=== PATIENT | male | born 1965 | race Caucasian/White ===

== ENCOUNTER 2021-11-18 07:34 | Day surgery (SDC) | payer MEDICARE ==
[~2021-11-18] VITALS: Ht 188 cm; Wt 114.9 kg
[~2021-11-18 07:34] MED LIST: Aspir 8181 MG PO; Crestor20 MG PO; LAMO100 PO; RISP2 PO; SERT50 PO; TRAZ50 PO
--- NOTE | 2021-11-18 09:00 | NUR ---
Ambulatory in Day Surgery History, Chart, Medications and Allergies reviewed before start of procedure. Lungs clear T/O to Auscultation. Patient confirms NPO status and agrees with scheduled surgery. Pre-Op teaching done. Pt verbalizes understanding. Patient States Post-Procedure ride home has been arranged.
[2021-11-18 09:16] LABS: Influenza A, PCR NEGATIVE (NEGATIVE); Influenza B, PCR NEGATIVE (NEGATIVE); Resp Syncytial Virus, PCR NEGATIVE (NEGATIVE); SARS-Cov-2 (COVID-19) PCR, MMC NEGATIVE (NEGATIVE)
--- NOTE | 2021-11-18 10:13 | NUR ---
11/18/21 1013 Wayne Phan History, Chart, Medications and Allergies reviewed before start of procedure. Patient confirms NPO status and agrees with scheduled surgery. 3-LEAD EKG REVIEWED WITH PHYSICIAN PRIOR TO START OF PROCEDURE. MONITOR INTACT WITH CONTINUOUS PULSE OXIMETRY AND INTERMITTENT BP. PATIENT DETERMINED TO BE ASA APPROPRIATE FOR PROPOFOL SEDATION PRIOR TO START OF PROCEDURE BY DR. RICE.
--- NOTE | 2021-11-18 10:43 | NUR ---
Patient up to Ambulate independently. Gait steady. Discharge instructions reviewed with patient. Patient verbalizes understanding. Copy given to patient to take home. Discharged via wheelchair to private car for ride home WITH SIGNIFICANT OTHER
== END 2021-11-18 10:44 | disposition home or self-care (01) ==
LOC: ORSCMMR 07:34 → ORD 08:30 → ORSCMMR 10:44
PROVIDERS: Internal Medicine Gastroenterology
PROC: 0DBP8ZX Excision of Rectum, Via Natural or Artificial Opening Endoscopic, Diagnostic (ICD-10-PCS; principal; 2021-11-18 08:30)
PROC: 0DBK8ZX Excision of Ascending Colon, Via Natural or Artificial Opening Endoscopic, Diagnostic (ICD-10-PCS; principal; 2021-11-18 08:30)
DX: Z12.11 Encounter for screening for malignant neoplasm of colon (principal); Z80.0 Family history of malignant neoplasm of digestive organs; D12.2 Benign neoplasm of ascending colon; K62.1 Rectal polyp; F32.A Depression, unspecified; I25.10 Atherosclerotic heart disease of native coronary artery without angina pectoris; F17.210 Nicotine dependence, cigarettes, uncomplicated; Z79.82 Long term (current) use of aspirin; Z79.899 Other long term (current) drug therapy
CPT/HCPCS: 0241U; 88305; J2704; J7120

== ENCOUNTER → 2023-04-13 | Outpatient (CLI) | payer MEDICARE | END | disposition home or self-care (01) | LOC: PLD 14:27 → LAB SHORT 14:27 | DX: D49.0 Neoplasm of unspecified behavior of digestive system (principal) | CPT/HCPCS: 88173 ==

== ENCOUNTER 2023-05-24 07:10 | Day surgery (SDC) | payer MEDICARE ==
[~2023-05-24] VITALS: Ht 188 cm; Wt 120.0 kg
--- NOTE | 2023-05-24 09:44 | NUR ---
05/24/23 0944 Hoa Waller 10 ML OF NORMAL SALINE MIXED & VERIFIED W/ 0.1 ML EPI (1MG/ML) PER ORDER FOR INJECTION AT OPSITE BY DR JEAN. 5 ML INJECTED.
--- NOTE | 2023-05-24 12:12 | NUR ---
05/24/23 1212 ABEBA PARSON SUTURES TO BELOW AND AROUND LEFT EAR. NO DRESSING IN PLACE
[2023-05-24 12:34] VITALS: BP 134/89
--- NOTE | 2023-05-24 12:41 | NUR ---
05/24/[address] IN TO SEE PT.
== END 2023-05-24 13:45 | disposition home or self-care (01) ==
LOC: ORSCSDS 07:10
PROVIDERS: Otolaryngology
PROC: 0CB90ZZ Excision of Left Parotid Gland, Open Approach (ICD-10-PCS; principal; 2023-05-24 08:45)
DX: D11.0 Benign neoplasm of parotid gland (principal); J44.9 Chronic obstructive pulmonary disease, unspecified; F17.210 Nicotine dependence, cigarettes, uncomplicated; E11.9 Type 2 diabetes mellitus without complications; I25.10 Atherosclerotic heart disease of native coronary artery without angina pectoris; F31.89 Other bipolar disorder; E66.9 Obesity, unspecified; Z68.34 Body mass index [BMI] 34.0-34.9, adult; Z79.899 Other long term (current) drug therapy; Z79.82 Long term (current) use of aspirin
CPT/HCPCS: 82947; 88307; A9270; J0171; J1100; J2250; J2405; J2704; J3010; J7120

== ENCOUNTER → 2023-09-03 | Outpatient (CLI) | payer MEDICARE | END | disposition home or self-care (01) | LOC: LAB SHORT 08:02 → LAB 08:02 | DX: L03.011 Cellulitis of right finger (principal) | CPT/HCPCS: 87070; 87077; 87186; 87205 ==

== ENCOUNTER 2023-11-01 06:08 | Day surgery (SDC) | payer MEDICARE ==
[~2023-11-01] VITALS: Ht 188 cm; Wt 121.2 kg
[2023-11-01] VITALS (8 sets, daily range): BP systolic 117–131; BP diastolic 76–88
[~2023-11-01 06:08] MED LIST changes: +ALBU90OI INH; +ANORO ELLIPTA1 EACH INH; +BENADRYL25 MG PO
--- NOTE | 2023-11-01 07:05 | NUR ---
Ambulatory in Day Surgery. History, Chart, Medications and Allergies reviewed before start of procedure.Lungs clear T/O to Auscultation. Patient confirms NPO status and agrees with scheduled surgery. Pre-Op teaching done. Pt verbalizes understanding. Patient States Post-Procedure ride home has been arranged.
--- NOTE | 2023-11-01 07:37 | NUR ---
PT HAVING BREATHING TREATMENT.
--- NOTE | 2023-11-01 07:40 | NUR ---
DR SPENCER HERE TO TALK WITH PT, REPORTS HAVING TO DELAY HIS PROCEDURE AT THIS TIME FOR AN EMERGENT CASE/PROCEDURE. PT CALLING HIS FAMILY/RIDE.
--- NOTE | 2023-11-01 08:57 | NUR ---
PT BEEN RESTING QUIETLY. DENIES NEED.
--- NOTE | 2023-11-01 09:55 | NUR ---
PT REMAINED NPO. PT UP TO USE RESTROOM, PT ABLE TO VOID. PT LS CLEAR.
--- NOTE | 2023-11-01 11:46 | NUR ---
REPORT RECEIVED FROM BENJAMIN MARIN RN. VSS. PT ABLE TO REPOSITION SELF IN BED. PT REQUESTING PO FOOD AND FLUIDS AND TOLERATING THEM WELL. PT REPORTS 3/10 ACHING PAIN TO ABDOMEN. PT DENIES NAUSEA OR OTHER CONCERNS. PT HAS ONE DRESSING WITH GAUZE AND OCCLUSIVE DRESSING TO ABDOMEN THAT IS C/D/I WITHOUT DRAINAGE, REDNESS OR SWELLING.
--- NOTE | 2023-11-01 12:28 | NUR ---
Patient up to Ambulate independently. Gait steady. Discharge instructions reviewed with patient. Patient verbalizes understanding. Copy given to patient to take home. Discharged via wheelchair to private car for ride home WITH S/O.
== END 2023-11-01 22:54 | disposition home or self-care (01) ==
LOC: ORSCMMR 06:08 → ORD 07:30 → ORSCMMR 22:54
PROVIDERS: Surgery
PROC: 0WUF4JZ Supplement Abdominal Wall with Synthetic Substitute, Percutaneous Endoscopic Approach (ICD-10-PCS; principal; 2023-11-01 09:30)
DX: K42.9 Umbilical hernia without obstruction or gangrene (principal); I25.10 Atherosclerotic heart disease of native coronary artery without angina pectoris; I25.2 Old myocardial infarction; E78.5 Hyperlipidemia, unspecified; E11.9 Type 2 diabetes mellitus without complications; Z79.84 Long term (current) use of oral hypoglycemic drugs; Z79.899 Other long term (current) drug therapy; F31.9 Bipolar disorder, unspecified; E66.9 Obesity, unspecified; Z68.34 Body mass index [BMI] 34.0-34.9, adult; J45.909 Unspecified asthma, uncomplicated; F17.210 Nicotine dependence, cigarettes, uncomplicated
CPT/HCPCS: 82947; A9270; J0690; J1100; J2250; J2405; J2704; J3010; J7120

== ENCOUNTER → 2025-07-17 | Outpatient (CLI) | payer MEDICARE ==
[2025-07-18 10:22] LABS: Alanine Aminotransfer (ALT/SGP 58 U/L (12-78); Albumin, Blood 4.1 g/dL (3.4-5.0); Albumin/Globulin Ratio 1.1 (0.8-1.8); Anion Gap 11 mmol/L (3-11); Aspartate Aminotrans (AST/SGOT 28 U/L (12-37); Bilirubin, Total 0.5 mg/dL (0.1-1.0); Blood Urea Nitrogen 12 mg/dL (8-24); CHOL/HDL RATIO 3.0; CO2, Blood 24 mmol/L (21-32); Calcium, Blood 8.8 mg/dL (8.5-10.1); Chloride, Blood 100 mmol/L (98-108); Cholesterol 141 mg/dL (50-200); Creatinine, Blood 0.72 mg/dL (0.60-1.20); Globulin, Blood 3.8 g/dL (2.2-4.0); Glucose, Blood 360 mg/dL (70-99); HDL Cholesterol 47 mg/dL (>39); LDL/HDL RATIO 1.1; Low Density Lipoprotein Chol 53 mg/dL (0-110); Potassium, Blood 4.3 mmol/L (3.5-5.5); Sodium, Blood 131 mmol/L (136-145); Thyroid Stimulating Hormone 0.705 uIU/mL (0.360-4.800); Total Protein, Blood 7.9 g/dL (6.4-8.2); Triglycerides 207 mg/dL (30-160); Very Low Density Lipoprot Chol 41 mg/dL (6-32)
== END ==
LOC: LAB 15:55 → LAB SHORT 15:55
PROVIDERS: Family Medicine
DX: E78.5 Hyperlipidemia, unspecified (principal); E11.9 Type 2 diabetes mellitus without complications; R03.0 Elevated blood-pressure reading, without diagnosis of hypertension; Z79.899 Other long term (current) drug therapy
CPT/HCPCS: 80053; 80061; 83036; 84443